=== PATIENT | female | born 1975 | race Caucasian/White ===

== ENCOUNTER 2018-02-11 14:03 | Emergency (ER) | payer SELFPAY ==
[~2018-02-11] VITALS: Ht 162.6 cm; Wt 84.4 kg
[2018-02-11 14:10] VITALS: Ht 162.6 cm; Wt 84.4 kg
[2018-02-11 17:12] VITALS: BP 123/74
== END 2018-02-11 17:12 | disposition home or self-care (01) ==
LOC: ED 14:03
DX: S70.02XA Contusion of left hip, initial encounter (principal); S09.8XXA Other specified injuries of head, initial encounter; M54.2 Cervicalgia; V09.9XXA Pedestrian injured in unspecified transport accident, initial encounter; Y93.01 Activity, walking, marching and hiking; Y92.830 Public park as the place of occurrence of the external cause; Y99.8 Other external cause status
CPT/HCPCS: Q0092